=== PATIENT | female | born 1955 | race Caucasian/White ===

== ENCOUNTER → 2021-02-08 21:10 | Outpatient (CLI) | payer MEDICARE | END | disposition home or self-care (01) | LOC: D.LABREF 21:10 | PROVIDERS: ATTEND Orthopaedic Surgery | DX: M19.011 Primary osteoarthritis, right shoulder (principal); G56.02 Carpal tunnel syndrome, left upper limb ==

== ENCOUNTER 2021-02-09 12:57 | Inpatient (IN) | payer MEDICARE, OTHER ==
[~2021-02-09] VITALS: Ht 154.9 cm; Wt 61.4 kg
[2021-02-26] MEDS ORDERED: KLONOPIN0.5 MG PO (13:56)
[2021-03-01] MEDS ORDERED: PROZAC40 MG PO (13:24)
[2021-03-01] MEDS ORDERED: NEURONTIN 400400 MG PO (13:24)
[2021-03-01] MEDS ORDERED: XANAX1 MG PO (13:25)
[2021-03-01] MEDS ORDERED: REMERON30 MG PO (13:25)
[2021-03-01 14:04] LABS: BASOPHILS 0.2 % (0-2); EOSINOPHILS 0.2 % (0-7); HEMATOCRIT 39.8 % (36.0-48.0); HEMOGLOBIN 13.5 g/dL (12-16); IMMATURE GRANULOCYTES 0.2 % (0-5); LYMPHOCYTE ABS# 1.46 10x3/uL (1.18-3.74); LYMPHOCYTES 24.2 % (15-50); MCHC 33.9 g/dL (31.0-37.0); MCV 94.3 fL (80.0-100.0); MEAN PLATELET VOLUME 11.1 fL (7.4-10.4); MONOCYTES 6.5 % (2-11); NEUTROPHIL ABS# 4.16 10x3/uL (1.56-6.13); NEUTROPHILS 68.7 % (40-80); PLATELET COUNT 219 10x3/uL (130-400); RBC 4.22 10x6/uL (4.00-5.40); RDW 12.9 % (11.5-14.5)
[2021-03-01 14:06] LABS: BILIRUBIN NEGATIVE (NEGATIVE); KETONE NEGATIVE (NEGATIVE); NITRITE NEGATIVE (NEGATIVE); UROBILINOGEN NORMAL mg/dL (< 2)
[2021-03-01 14:07] LABS: BACTERIA FEW HPF (NONE SEEN); SQUAMOUS EPITHELIAL 0-5 HPF (0-4); WHITE CELLS - URINE 0-5 HPF (0-4)
[2021-03-01 14:13] LABS: CALCIUM 9.5 mg/dL (8.5-10.1); CARBON DIOXIDE 29.2 mmol/L (21.0-32.0); CREATININE - SERUM 1.2 mg/dL (0.6-1.3); POTASSIUM - SERUM 4.2 mmol/L (3.5-5.1)
[2021-03-01 14:15] LABS: APTT 27.3 SECONDS (22.8-39.4); INR 1.02 (0.85-1.17); PROTIME 12.4 SECONDS (11.6-15.0)
[2021-03-03 09:33] VITALS: BP 132/85; BMI 25.5
--- NOTE | 2021-03-03 11:04 | NUR ---
CAUTERY PAD PLACED ON RIGHT THIGH. PLASMA BLADE USED ON SETTING 6/8. AQUAMANTYS USED ON SETTING 170. CAUTERY PAD LOT#[id number] EXP. 06/29/2022
[2021-03-03 13:15] VITALS: BP 140/78
[2021-03-03 13:25] VITALS: BP 140/78; Ht 154.9 cm; Wt 61.4 kg
[2021-03-03 15:35] VITALS: BP 127/82
--- NOTE | 2021-03-03 16:15 | NUR ---
PATIENT SITTING UP IN BED, NO NEEDS VOICED, CL IN REACH BED IN LOWEST POSITION CONTINUE WITH PLAN OF CARE
[2021-03-03 19:15] VITALS: BP 143/77
--- NOTE | 2021-03-03 21:24 | OP ---
PATIENT NAME: ЕКАТЕРИНА GONSALES MEDICAL RECORD: [id number] :55 LOCATION:D. D.1206 ADMISSION DATE:03/03/21 SURGEON: BLANCO HUDSON DO DATE OF OPERATION: 03/03/2021 PROCEDURE PERFORMED: Left endoscopic carpal tunnel release and left total shoulder arthroplasty. PREOPERATIVE DIAGNOSIS: Left carpal tunnel syndrome and left shoulder osteoarthritis. POSTOPERATIVE DIAGNOSIS: Left carpal tunnel syndrome and left shoulder osteoarthritis. INDICATIONS: Ms. Gonsales is a 66-year-old female who presented to my office back in November I believe with left shoulder pain and signs of carpal tunnel. She had it tested and had positive median nerve compression at the positive carpal tunnel with a nerve conduction study of the left wrist. She tried an injection in the left shoulder, but it did not help. She had good strength of the supraspinatus and infraspinatus as well as the subscapularis, but she is tired of the popping and grinding of her shoulder and losing motion. She did have a spurs also on the x-ray. We tried injection three months ago and did not work. She wanted something done surgical as well as the carpal tunnel. I informed her of the risks of this including infection, bleeding, damage to nerves and vessels in the area, loss of motion of the shoulder, continued pain in the hand and wrist fracture, bleeding, need for further surgery, failure of implants and dislocation and instability of the left shoulder and even and she signed the consent. SURGEON: Blanco Hudson DO DESCRIPTION OF PROCEDURE: The patient was taken to the operative suite, laid in supine position, given general anesthetic and intubated. She was given a gram of Ancef preoperatively. The patient was then placed in the beach chair position. The left upper extremity was prepped and draped in sterile fashion. A timeout was performed. Everyone was in agreeance with the correct site, side, patient and procedure. I then began by doing the endoscopic carpal tunnel first. We exsanguinated the left upper extremity with an Esmarch, tourniquet was inflated to 250 mmHg, was up for 6 minutes. I made a small incision over the palmaris longus tendon and made blunt dissection with Ragnells down the median nerve, released the fascia and then an incision from distal to proximal. I then went to the carpal tunnel with the dilators and then brought through the sheath and brought the rasp and a probe and ensure there is nothing in the transverse carpal ligament and then brought the blade and raise it up and transected the transverse carpal ligament. Once that was transected, fat herniated down into the carpal tunnel, indicating good release. I then removed the instruments and used long end of Ragnell and scissors to ensure there is no more remaining fibers and there were not. I then injected that site with 0.25% Marcaine with epinephrine, approximately 7 mL and Carlos Puentes, certified surgical assistant curator closed the site with 5-0 Vicryl in inverted interrupted fashion and placed Steri-Strips, Adaptic, 4 x 4, Kerlix, and Coban lightly wrapped. We then addressed the shoulder. I marked out the deltopectoral interval made careful dissection down after cutting through the skin with a 10 blade scalpel and then using plasma blade and Aquamantys for coagulation. I then encountered the cephalic vein to get laterally, used Castillo to free up the OPERATIVE REPORT [id number] ЕКАТЕРИНА GONSALES deltoid off the humerus using a deltoid retractor at that point and released the proximal centimeter or so of the PEG. I then tagged the long head of the biceps tendon to the stump of the PEG and with #2 Ethibond and tied into place in a deznme-di-jraxd fashion, cut the rest of the proximal portion of the long head of the biceps tendon followed up through the rotator interval opened up the rotator interval. Tagged the subscapularis tendon with two #2 Ethibonds and peeled it off the lesser tuberosity exposed the humeral head. She did not have any tear seen in the supraspinatus, infraspinatus, or the subscapularis. I then marked the head cut and cut the head removed the head and then exposed the glenoid. I used a Castillo to free up the subscapularis and the anterior scapula, and with the glenoid exposed, I removed the labrum and the long head biceps tendon. I then used a centering pin and wire for #2 glenoid. I then reamed and drilled for a 4 peg glenoid and then trialled and it fit very well and then cemented and impacted it in. Put the cement on the glenoid and on the implant and impacted that and removed the excess cement. I then exposed the humerus, reamed and then broached to a 12, 12 fit well. We then trialled a 42 x 21 head and had very good balance. With the shoulder reduced, had approximately 50% shucking with a quick bounce back. I then removed the trials and irrigated and put in the actual implant of 12 stem with a 42 x 21 head gaving good coverage of the humerus. Prior to that, I did drill holes in the lesser tuberosity and put in #2 Ethibond through the drill holes. We then reduced the shoulder and repaired the subscap to the lesser tuberosity with #2 Ethibond in a Lucian-Stan type stitch and then closed the rotator interval, also with #2 Ethibond. I then irrigated with 10% povidone iodine and 500 mL of normal saline solution range the shoulder, it ranged very well and had good smooth range of motion. Then irrigated that out with over a liter of normal saline. Carlos Puentes, certified surgical assistant curator then put in Guillermo and vancomycin and tobramycin powder. I then closed the skin with 2-0 Vicryl in an inverted interrupted fashion and 4-0 Monocryl in the skin and placed a Prineo glue on the skin. Once that had dried, placed Telfa and Tegaderm and put in a sling. She was then awakened and taken to recovery in stable condition. Blood loss approximately 100 mL. COMPLICATIONS: None. TRANSINT:[id number] Voice Confirmation ID: [id number] DOCUMENT ID: [id number] BLANCO HUDSON DO at 2124 CC: [id number] DICTATION DATE: 03/03/21 121 VENEER JOINTER HELPER: 03/03/212021 ADM IN [facility] [address] [place] [address]
[2021-03-04] VITALS: BP 95/62
--- NOTE | 2021-03-04 00:42 | NUR ---
PT REQUESTED PAIN MEDS. SHE RATES HER PAIN AN 8.
[2021-03-04 04:00] VITALS: BP 102/66
[2021-03-04 07:52] VITALS: BP 137/61
--- NOTE | 2021-03-04 08:05 | NUR ---
ADMINISTERED PRN PAIN MEDICATION, PATIENT STATES PAIN IS UP THERE AND THOUGHT SHE WAS GIVEN MEDICAINE AT 3 BUT MEDICATION ADMNISTERED AT THAT TIME WAS PROTONIX. NO OTHER NEEDS VOICED, CONTINUE WITH PLAN OF CARE
--- NOTE | 2021-03-04 10:01 | NUR ---
PATIENT COMPLETED ABX, REQUESTED TO BE SL, PLACED ICE ON INCISION AREA, NO OTHER NEEDS AT THIS TIME. CONTINUE WITH PLAN OF CARE
[2021-03-04] MEDS ORDERED: PERCOCET 10-321 EAC1 PO (12:08)
--- NOTE | 2021-03-04 14:12 | MORECARE ---
CASE MANAGEMENT DISCHARGE SUMMARY PATIENT: ЕКАТЕРИНА GONSALES UNIT: [id number] ADM DATE: 03/03/21 AGE: 66 : 55 SEX: F ROOM/BED: [facility] AUTHOR: ARTHUR,DOC PHYSICIAN: REFERRING PHYSICIAN: LAUREN HUDSON DO DATE OF SERVICE: 03/04/21 Case Management Discharge Planning Summary DCP REVIEW SUMMARY ANTICIPATED D/C DATE: 03/04/2021 EXPECTED LOS : 1 CASE STATUS: DCP Initiated INITIAL REVIEW: 03/03/2021 INITIAL REVIEWER: Kiesha Hines FINAL DISCHARGE DISPOSITION: 01 : Home or Self Care (Routine Discharge) FINAL REVIEWER: Keisha Hines FINAL REVIEW DATE: 03/04/2021 DCP Focus Questions & Answers QUESTION: ANSWER : PATIENT: ЕКАТЕРИНА GONSALES ENCOUNTER: [id number] MEDICAL RECORD#: [id number] ADMISSION DATE: 03/03/2021 DISCHARGE DATE: ATTENDING MD: LAUREN KNIGHT : AGE: 66 MARITAL STATUS: U DC PLAN ID: [id number] FACILITY: [facility] PRINTED ON: 03/04/21 14:12 CT All edits/amendments must be made on the electronic document DICTATION DATE: 03/04/211411 POLE FRAMER MACHINE: RAJIV 03/04/211411 RPT#: [id number] DC DATE: STATUS: ADM IN [facility] [address] [place] [address] END OF REPORT
--- NOTE | 2021-03-04 14:38 | MORECARE ---
CASE MANAGEMENT DISCHARGE SUMMARY PATIENT: ЕКАТЕРИНА GONSALES UNIT: [id number] ADM DATE: 03/03/21 AGE: 66 : 55 SEX: F ROOM/BED: D.1206 AUTHOR: ARTHUR,DOC PHYSICIAN: REFERRING PHYSICIAN: LAUREN HUDSON DO DATE OF SERVICE: 03/04/21 Case Management Discharge Planning Summary COMMENTS ENTERED DATE: 03/04/21 14:33 CT COMMENT TYPE: Discharge Planning REVIEWER: Keisha Hines [facility]- [facility] KRISTINE GARCIA - DR JESSICA CASTELLON DENIES ANY NEEDS. ENTERED DATE: 03/04/21 14:06 CT COMMENT TYPE: Discharge Planning REVIEWER: Keisha Hines CM MET WITH THE PATIENT TO EVALUATE DISCHARGE PLAN AND NEEDS. SHE WAS SITTING AT THE SIDE OF THE BED , DRESSED AND AWAITING HER TRANSPORTATION TO HOME. CM EXPLAINED ROLE. RECEIVED PERMISSION TO PROCEED WITH ASSESSMENT. THE PATIENT STATES SHE HAS GOOD SUPPORT AND HAS NO NEEDS. SHE DOES NOT DESIRE OR FEEL A NEED FOR ANY ADDITIONAL HELP OR COMMUNITY SERVICES. SHE HAS A NETWORK OF FRIENDS SHE TRUST TO ASSIST HER. SHE STATES HER HOME IS SAFE AND ALL UTILITIES ARE ON. SHE WILL BE ABLE TO AFFORD HER MEDS AND CAN ACQUIRE THEM. SHE DENIES ANY NEED FOR DME, HOME HEALTH OR SNF. DISCHARGE IMM EXPLAINED AND SERVED. SHE IS READY FOR DISCHARGE TO HOME. DCP REVIEW SUMMARY ANTICIPATED D/C DATE: 03/04/2021 EXPECTED LOS : 1 CASE STATUS: DCP Initiated INITIAL REVIEW: 03/03/2021 INITIAL REVIEWER: Keisha Hines FINAL DISCHARGE DISPOSITION: 01 : Home or Self Care (Routine Discharge) FINAL REVIEWER: Keisha Hines FINAL REVIEW DATE: 03/04/2021 DCP Focus Questions & Answers QUESTION: ANSWER : PATIENT: ЕКАТЕРИНА GONSALES ENCOUNTER: [id number] MEDICAL RECORD#: [id number] ADMISSION DATE: 03/03/2021 DISCHARGE DATE: ATTENDING MD: LAUREN KNIGHT : AGE: 66 MARITAL STATUS: U DC PLAN ID: [id number] FACILITY: [facility] PRINTED ON: 03/04/21 14:38 CT All edits/amendments must be made on the electronic document DICTATION DATE: 03/04/211437 RELAY ADJUSTER: RAJIV 03/04/211437 RPT#: [id number] DC DATE: STATUS: ADM IN [facility] [address] [place] [address] END OF REPORT
--- NOTE | 2021-03-04 16:12 | NUR ---
PATIENT DC HOME WENT OVER PAERWORK AND FOLLOW UP APPOINTMENT WITH PATIENT, IV DC WITH CATHETER INTACT. CONTINUE WITH PLAN OF CARE
--- NOTE | 2021-03-04 16:21 | MORECARE ---
CASE MANAGEMENT DISCHARGE SUMMARY PATIENT: ЕКАТЕРИНА GONSALES UNIT: [id number] ADM DATE: 03/03/21 AGE: 66 : 55 SEX: F ROOM/BED: D.1206 AUTHOR: ARTHUR,DOC PHYSICIAN: REFERRING PHYSICIAN: LAUREN HUDSON DO DATE OF SERVICE: 03/04/21 Case Management Discharge Planning Summary COMMENTS ENTERED DATE: 03/04/21 14:33 CT COMMENT TYPE: Discharge Planning REVIEWER: Keisha Hines [facility] KRISTINE CASTELLON DENIES ANY NEEDS. ENTERED DATE: 03/04/21 14:06 CT COMMENT TYPE: Discharge Planning REVIEWER: Keisha Hines CM MET WITH THE PATIENT TO EVALUATE DISCHARGE PLAN AND NEEDS. SHE WAS SITTING AT THE SIDE OF THE BED , DRESSED AND AWAITING HER TRANSPORTATION TO HOME. CM EXPLAINED ROLE. RECEIVED PERMISSION TO PROCEED WITH ASSESSMENT. THE PATIENT STATES SHE HAS GOOD SUPPORT AND HAS NO NEEDS. SHE DOES NOT DESIRE OR FEEL A NEED FOR ANY ADDITIONAL HELP OR COMMUNITY SERVICES. SHE HAS A NETWORK OF FRIENDS SHE TRUST TO ASSIST HER. SHE STATES HER HOME IS SAFE AND ALL UTILITIES ARE ON. SHE WILL BE ABLE TO AFFORD HER MEDS AND CAN ACQUIRE THEM. SHE DENIES ANY NEED FOR DME, HOME HEALTH OR SNF. DISCHARGE IMM EXPLAINED AND SERVED. SHE IS READY FOR DISCHARGE TO HOME. ARP REVIEW SUMMARY ANTICIPATED D/C DATE: 03/04/2021 EXPECTED LOS : 1 CASE STATUS: DCP Initiated INITIAL REVIEW: 03/03/2021 INITIAL REVIEWER: Keisha Hines FINAL DISCHARGE DISPOSITION: 01 : Home or Self Care (Routine Discharge) FINAL REVIEWER: Keisha Hines FINAL REVIEW DATE: 03/04/2021 DCP Focus Questions & Answers QUESTION: ANSWER : PATIENT: ЕКАТЕРИНА GONSALES ENCOUNTER: [id number] MEDICAL RECORD#: [id number] ADMISSION DATE: 03/03/2021 DISCHARGE DATE: 03/04/2021 ATTENDING MD: LAUREN KNIGHT : AGE: 66 MARITAL STATUS: U DC PLAN ID: [id number] FACILITY: [facility] PRINTED ON: 03/04/21 16:21 CT All edits/amendments must be made on the electronic document DICTATION DATE: 03/04/211620 CASTING INSPECTOR: RAJIV 03/04/211620 RPT#: [id number] DC DATE:03/04/21 STATUS: DIS IN [facility] [address] [place] [address] END OF REPORT
== END 2021-03-04 16:15 | disposition home or self-care (01) | DRG 483 ==
LOC: D.SDCHOLD 03-03 07:40 → D.M3 03-03 12:38
PROVIDERS: ADMIT Orthopaedic Surgery; ATTEND Orthopaedic Surgery
PROC: 0RRK0JZ Replacement of Left Shoulder Joint with Synthetic Substitute, Open Approach (ICD-10-PCS; principal; 2021-03-03 09:45)
PROC: 01N54ZZ Release Median Nerve, Percutaneous Endoscopic Approach (ICD-10-PCS; 2021-03-03 09:45)
DX: M19.012 Primary osteoarthritis, left shoulder (principal); G56.02 Carpal tunnel syndrome, left upper limb; G62.9 Polyneuropathy, unspecified; M79.7 Fibromyalgia; K58.9 Irritable bowel syndrome, unspecified; K25.9 Gastric ulcer, unspecified as acute or chronic, without hemorrhage or perforation; G89.29 Other chronic pain; M54.9 Dorsalgia, unspecified; M54.2 Cervicalgia; F41.9 Anxiety disorder, unspecified; F32.9 Major depressive disorder, single episode, unspecified; Z87.891 Personal history of nicotine dependence

== ENCOUNTER 2021-02-26 11:02 | Emergency (ER) | payer MEDICARE ==
[~2021-02-26] VITALS: Ht 154.9 cm; Wt 61.4 kg
[2021-02-26 11:09] VITALS: BP 136/98; Ht 154.9 cm; Wt 61.4 kg
[2021-02-26 11:43] LABS: BASOPHILS 0.3 % (0-2); EOSINOPHILS 0 % (0-7); HEMATOCRIT 42.1 % (36.0-48.0); HEMOGLOBIN 14.3 g/dL (12-16); IMMATURE GRANULOCYTES 0.1 % (0-5); LYMPHOCYTE ABS# 0.95 10x3/uL (1.18-3.74); LYMPHOCYTES 13.9 % (15-50); MCH 31.9 pg (26.0-34.0); MEAN PLATELET VOLUME 11.2 fL (7.4-10.4); NEUTROPHILS 80.7 % (40-80); PLATELET COUNT 222 10x3/uL (130-400); RBC 4.48 10x6/uL (4.00-5.40); WBC 6.8 10x3/uL (4.8-10.8)
[2021-02-26 11:56] LABS: CALC OSMOLALITY 278 mosm/kg (275-300); CALCIUM 9.1 mg/dL (8.5-10.1); CARBON DIOXIDE 23.4 mmol/L (21.0-32.0); CHLORIDE - SERUM 104 mmol/L (98-107); GLUCOSE 111 mg/dL (74-106); POTASSIUM - SERUM 4.2 mmol/L (3.5-5.1); SODIUM 140 mmol/L (136-145); UREA NITROGEN 10 mg/dL (7-18); eGFR NON AFRICAN AMERICAN 59 mL/min (90-120)
[2021-02-26 12:01] LABS: APTT 26.4 SECONDS (22.8-39.4); INR 0.97 (0.85-1.17); PROTIME 11.9 SECONDS (11.6-15.0)
[2021-02-26 12:15] LABS: ALBUMIN 4.3 g/dL (3.4-5.0); ALKALINE PHOSPHATASE 77 U/L (30-120); ALT (SGPT) 22 U/L (10-68); BILIRUBIN - TOTAL 0.49 mg/dL (0.2-1.3); CKMB 0.5 U/L (0.0-3.6); CREATINE KINASE 48 UL (21-215); MAGNESIUM - SERUM 1.9 mg/dL (1.8-2.4); PROTEIN - SERUM 7.5 g/dL (6.4-8.2); THYROID STIMULATING HORMONE 0.99 uIU/mL (0.36-3.74)
[2021-02-26 12:18] LABS: TROPONIN-I < 0.017 ng/mL (0.000-0.060)
[2021-02-26] MEDS ORDERED: KLONOPIN0.5 MG PO (13:56)
== END 2021-02-26 14:15 | disposition home or self-care (01) ==
LOC: D.ER 11:02
PROVIDERS: Student in an Organized Health Care Education/Training Program
DX: F41.9 Anxiety disorder, unspecified (principal); R42 Dizziness and giddiness; R41.0 Disorientation, unspecified; R53.1 Weakness; R11.0 Nausea